=== PATIENT | female | born 2000 | race Caucasian/White ===

== ENCOUNTER 2022-04-14 15:42 | Outpatient (CLI) | payer BC, SELFPAY ==
[2022-04-14 20:19] LABS: Chlamydia DNA Amplified* NOT DETECTED (No Detected); GC DNA Amplified* NOT DETECTED (No Detected)
== END 2022-04-14 15:43 | disposition home or self-care (01) ==
LOC: NFLDREF 15:43
PROVIDERS: Visit Provider Registered Nurse
DX: Z11.3 Encounter for screening for infections with a predominantly sexual mode of transmission (principal)
CPT/HCPCS: 87491; 87591

== ENCOUNTER 2023-04-01 12:10 | Outpatient (CLI) | payer BC, SELFPAY | END 2023-04-01 12:11 | disposition home or self-care (01) | LOC: NFLDREF 04-04 11:49 | DX: R39.9 Unspecified symptoms and signs involving the genitourinary system (principal); N30.00 Acute cystitis without hematuria | CPT/HCPCS: 87086; 87186 ==

== ENCOUNTER 2023-05-17 12:06 | Outpatient (CLI) | payer BC, SELFPAY | END 2023-05-17 12:07 | disposition home or self-care (01) | LOC: NFLDREF 05-21 07:01 | PROVIDERS: Visit Provider Nurse Practitioner Family | DX: R30.0 Dysuria (principal); N30.00 Acute cystitis without hematuria; N30.01 Acute cystitis with hematuria | CPT/HCPCS: 87086 ==

== ENCOUNTER 2023-10-16 17:30 | Outpatient (CLI) | payer BC, SELFPAY ==
[2023-10-16 22:22] LABS: Chlamydia DNA Amplified* NOT DETECTED (No Detected); GC DNA Amplified* NOT DETECTED (No Detected)
== END 2023-10-16 17:31 | disposition home or self-care (01) ==
LOC: NFLDREF 17:30
PROVIDERS: Visit Provider Registered Nurse
DX: N92.6 Irregular menstruation, unspecified (principal); Z11.3 Encounter for screening for infections with a predominantly sexual mode of transmission
CPT/HCPCS: 87491; 87591

== ENCOUNTER 2023-10-19 15:52 | Outpatient (CLI) | payer BC, SELFPAY ==
--- NOTE | 2023-10-19 16:00 | US_ITS ---
Patient: BENSON MTZ Facility:?[facility] Patient ID:?[id number] Site Patient ID:?[id number]. Site :?[id number] Study:?US-Pelvis TRANSABDOMINAL AND TRANSVAGINAL-10/19/2023 4:36:01 PM Ordering Physician:BRUCE DAIZ Final Report: INDICATION: Irregular menses. COMPARISON: None available. FINDINGS: Transabdominal and transvaginal ultrasound examination of the female pelvis was performed. Transvaginal examination is used for better evaluation of the ovaries. The uterus is anteverted with no evidence of mass. It measures 8.4 x 3.1 x 5.0 cm. The endometrial lining thin and unmeasurable. There is a T-shaped intrauterine device in satisfactory position in the superior uterine fundus. There is a large right simple ovarian cyst measuring 9.7 x 6.1 x 7.7 centimeters. The left ovary has a complex cyst with low-level internal echoes consistent with a hemorrhagic cyst, measuring 3.1 x 1.7 x 2.1 centimeters. The right ovary measures 10.7 x 6.2 x 8.0 centimeters, prominently enlarged by the simple cyst. The left ovary measures 5.1 x 2.0 x 4.4 centimeters, mildly enlarged by the complex cyst. There is normal color and pulse doppler flow in both ovaries. There is no sign of free fluid in the pelvis. IMPRESSION: 1. Prominent enlargement of the right ovary by a simple cyst measuring up to 9.7 centimeters in diameter. 2. Mild enlargement of the left ovary by a hemorrhagic cyst measuring 3.1 centimeters in diameter. 3. Satisfactory positioning of an intrauterine device with otherwise normal appearance of the uterus. Dictated by Ankush Caban MD @ 10/21/2023 11:56:26 AM Signed by:?Ankush Caban MD @10/21/2023 11:56:26 AM (Electronic Signature)
== END 2023-10-19 15:53 | disposition home or self-care (01) ==
LOC: US 15:53
PROVIDERS: Visit Provider Registered Nurse
DX: N92.6 Irregular menstruation, unspecified (principal); N83.201 Unspecified ovarian cyst, right side; N83.202 Unspecified ovarian cyst, left side
CPT/HCPCS: 76830; 76856; 93976

== ENCOUNTER 2023-11-13 06:05 | Day surgery (SDC) | payer BC, SELFPAY ==
[2023-11-13] VITALS (19 sets, daily range): BP systolic 83–118; BP diastolic 44–90; PULSE 57–101; RESP 16–18; TEMP 36.3–36.8; O2SAT 92–100; BMI 20.7
[2023-11-13 06:54] LABS: Basophils Absolute Auto 0.04 K/uL (0.00-0.30); Basophils Percent Auto 0.7 % (0.0-3.0); Eosinophils Absolute Auto 0.12 K/uL (0.00-0.50); Eosinophils Percent Auto 2.1 % (0.0-7.0); Hematocrit 36.5 % (33.0-51.0); Lymphocytes Absolute Auto 2.14 K/uL (0.90-2.90); Mean Corpuscular HGB Conc 33 gm/dL (32-36); Mean Corpuscular Hemoglobin 29 pg (26-34); Mean Corpuscular Volume 89 fL (80-100); Neutrophils Absolute Auto 3.19 K/uL (1.7-7.0); Neutrophils Percent Auto 55.2 % (42.0-72.0); Platelet Count* 255 K/uL (140-440); RDW Coefficient of Variation % 11.9 % (11.5-15.5); White Blood Count* 5.78 K/uL (4.50-11.00)
[2023-11-13 06:55] LABS: Ur HCG Qualitative* Negative (Negative)
[2023-11-13] MEDS: LACTATED RINGERS 1000 ML 1,000 ML 100 ML IV ×2 (06:56→09:43)
[2023-11-13] MEDS: SODIUM CHLORIDE 0.9 % (FLUSH) 10 ML SYRINGE IVF (06:56)
[2023-11-13 07:15] LABS: Slide Review Reflex No
--- NOTE | 2023-11-13 07:23 | W.PM.H&PU ---
History & Physical Update History & Physical Update H&P Reviewed and patient assessed: No changes noted
[2023-11-13] MEDS: SCOPOLAMINE 1 MG/3 DAY PATCH 1 PATCH TRANSDERMA (07:38)
[2023-11-13] MEDS: BUPIVACAINE 0.5 %/EPI 1:200K 30 ML INJECTION (09:55)
--- NOTE | 2023-11-13 10:24 | W.ANESCHARGE ---
Anesthesia Charges Start Date/Time Anesthesia Start Date: 11/13/23 Anesthesia Start Time: 07:37 Stop Date/Time Anesthesia Stop Date: 11/13/23 Anesthesia Stop Time: 10:07
--- NOTE | 2023-11-13 10:39 | PM.GYNPRLA ---
Procedure Pre-op/Post-op diagnoses: Pre-Op/Post-Op Diagnoses Operation Date: 11/13/23 07:30 <No data on this case meets the specified criteria> Procedure: Procedures Operation Date: 11/13/23 07:30 Actual Procedure Side Surgeon p Diagnostic Laparoscopy, Right Ovarian Cystectomy Not Applicable Alyssa Quintana MD Steel Rule Inspector: Estephanie Albarado Estimated blood loss (mL): 15 Anesthesia Type: General and Local Complications: none Specimen: other (Right ovarian cyst) Narrative: Preoperative diagnosis: 23-year-old 0 para 0 with 10 cm simple right ovarian cyst on pelvic ultrasound. Postoperative diagnosis: Same IV Fluid: 1400 mL Urine output: 800 mL Drains: Novak to gravity Specimen: Right ovarian cyst to pathology Findings: On exam under anesthesia: The uterus was anteverted, approximately 5 week size. IUD string protruding from cervical os. Cervix is normal without lesion. Palpable, mobile midline mass noted in the posterior fornix. Mass is well circumscribed. On laparoscopy: Normal uterus and bilateral fallopian tubes. Normal appearing left ovary. Right ovary with 10 cm simple cyst noted. Appendix and liver all appeared normal. Procedure: Brandy was taken to the operating room where general anesthetic was found to be adequate. She was placed in the dorsal lithotomy position and an exam under anesthesia was performed with findings stated above. She was then prepped and draped in a normal sterile manner. A Novak catheter was placed. A bivalve speculum was placed in the vaginal canal for exam under anesthesia. A sponge stick was placed into the vagina to be used as a manipulator. All incisions were infiltrated with 0.5% Marcaine with epi prior to incising the skin. A vertical, infraumbilical 1 cm incision was made. A Ysabel method was used to enter the abdomen while keeping the fascial defect to fit the 5 mm trocar. A 5mm trocar was then placed under direct visualization. The abdomen was then insufflated with CO2 gas to a pressure of 15 mm of mercury. Diagnostic laparoscopy was performed. 1 pelvic port was then placed approximately 3-4 finger breaths medial to the ischial crests. The trocar in the LLQ = 11mm. Another port was placed a hand's breath superior to and slightly medial to the LLQ port. This one was a 5mm port. These trocars were placed under direct visualization. Attention was then turned towards performing the right ovarian cystectomy. Ligasure was used for sequential dissection of the right ovarian cyst off the right ovary. Right ovarian cyst was removed intact. The left lower quadrant port was extended to 15mm to fit the spleen bag. The right ovarian cyst was placed into the spleen bag and removed intact though the left lower quadrant port. Akash was applied to the remaining ovarian cortex. Excellent hemostasis was noted of all pedicles. The trocars were then removed under direct visualization. The CO2 gas was allowed to escape the infraumbilical port prior to its removal. Fascial at the 15mm LLQ port was closed with 0-vicryl in a continuous running manner under direct visualization using s-retractors. Decision was made to close the fascia on the umbilical 5 mm port with 0-vicryl figure of 8 as the defect was readily visible. The skin was reapproximated with 4-0 monocryl. Two other incisions were reapproximated using 4-0 Monocryl in a running subcuticular manner. Exofin was applied at the port sites. The Novak cath and vaginal manipulator was removed. The patient tolerated this procedure well. Sponge, lap and instrument counts were correct x2 at the end of the procedure and the patient was taken to the recovery area in stable condition.
--- NOTE | 2023-11-13 10:57 | SUR.PHASEI ---
patient meets pacu d/c criteria
--- NOTE | 2023-11-13 11:22 | W.ANESCHARGE ---
Anesthesia Charges Start Date/Time Anesthesia Start Date: 11/13/23 Anesthesia Start Time: 07:37 Stop Date/Time Anesthesia Stop Date: 11/13/23 Anesthesia Stop Time: 10:07
[2023-11-13] MEDS: ACETAMINOPHEN 500 MG TABLET 1000 MG PO (13:00)
--- NOTE | 2023-11-13 13:19 | SUR.PHASEII ---
Pt reports incisional pain 2-3/10. denies nausea. Tolerated toast and water. parents supportive at bedside.
== END 2023-11-13 13:45 | disposition home or self-care (01) ==
PROVIDERS: PCP Physician Assistant; Visit Provider Obstetrics & Gynecology
PROC: (CPT 58662; principal; 2023-11-13 07:30)
DX: D27.0 Benign neoplasm of right ovary (principal); N92.6 Irregular menstruation, unspecified
CPT/HCPCS: 58662; 00840; 36415; 81025; 85025; 86850; 86900; 86901; 88307; A9270; J0330; J1100; J1200; J1453; J1630; J1885; J2250; J2405; J2704; J3010; J3490; J7050; J7120

== ENCOUNTER 2023-11-28 14:59 | Outpatient (CLI) | payer BC, SELFPAY | END 2023-11-28 15:00 | disposition home or self-care (01) | LOC: NFLDREF 15:00 | PROVIDERS: PCP Physician Assistant; Visit Provider Obstetrics & Gynecology | DX: N39.0 Urinary tract infection, site not specified (principal) | CPT/HCPCS: 87086 ==